=== PATIENT | male | born 1945 | race Caucasian/White ===

== ENCOUNTER 2017-02-16 13:42 | Emergency (ER) | payer MEDICARE, MEDICAID ==
[~2017-02-16] VITALS: Ht 182.9 cm; Wt 68.0 kg
[~2017-02-16 13:42] MED LIST: TAMS-12 PO
[2017-02-16 13:51] VITALS: BP 127/68
== END 2017-02-16 14:52 | disposition left against medical advice (07) ==
LOC: ER 13:44
DX: Z53.21 Procedure and treatment not carried out due to patient leaving prior to being seen by health care provider (principal)
CPT/HCPCS: A4606; Z7502; Z7610

== ENCOUNTER 2021-08-13 12:37 | Emergency (ER) | payer MEDICARE, MEDICAID ==
[~2021-08-13] VITALS: Ht 182.9 cm; Wt 79.4 kg
--- NOTE | 2021-08-13 12:40 | NUR ---
BIBRA 878 FROM HOME PT C/O DIFFICULTY URINATING SINCE LAST NIGHT. PT IS A&OX 4 AND IS STABLE. PT VITALS ARE WITHIN NORMAL LIMITS. PT BREATHING IS REGULAR AND UNLABORED. PT SENT TO BED 4 AND PLACED ON MONITOR.
--- NOTE | 2021-08-13 12:42 | NUR ---
DR FOWLER AT PT BEDSIDE
--- NOTE | 2021-08-13 12:44 | NUR ---
AUGUSTIN CATHETER WAS PLACED
--- NOTE | 2021-08-13 12:48 | NUR ---
LAB AT PT BEDSIDE
--- NOTE | 2021-08-13 12:55 | NUR ---
URINE COLLECTED AND SENT TO LAB
[2021-08-13 13:06] LABS: BASOPHILS % (AUTO) 0.7 % (0.0-2.0); EOSINOPHILS % (AUTO) 0.3 % (0.0-6.0); HEMATOCRIT 38 % (39-51); LYMPHOCYTES # (AUTO) 0.9 K/uL (0.8-4.8); LYMPHOCYTES % (AUTO) 18.5 % (20.0-44.0); MEAN CORPUSCULAR HGB CONC 34 g/dl (31.0-36.0); MEAN CORPUSCULAR VOLUME 102 fL (80-96); MONOCYTES # (AUTO) 0.5 K/uL (0.1-1.30); MONOCYTES % (AUTO) 10.7 % (2.0-12.0); NEUTROPHILS # (AUTO) 3.4 K/uL (1.8-8.9); NEUTROPHILS % (AUTO) 69.8 % (43.0-81.0); PLATELET COUNT (AUTO) 249 K/uL (150-450); WHITE BLOOD COUNT (AUTO) 4.8 K/uL (4.3-11.0)
[2021-08-13 13:21] LABS: CALCIUM, SERUM 8.4 mg/dL (8.5-10.1); POTASSIUM 3.9 mmol/L (3.5-5.1)
[2021-08-13 13:21] LABS: BILIRUBIN,URINE Negative (NEGATIVE); COLOR,URINE YELLOW (YELLOW); LEUKOCYTE ESTERASE ,URINE Negative (NEGATIVE); NITRITE, URINE Negative (NEGATIVE); PH,URINE 7.5 (5.0-8.0); PROTEIN,URINE Negative (NEGATIVE); UGLUCOSE Negative (NEGATIVE); UROBILINOGEN,URINE 0.2 EU/dL (0.2)
[2021-08-13 13:38] LABS: BACTERIA,URINE None seen /HPF (None Seen); RBC,URINE 21-50 /HPF (0-2); WBC,URINE NONE SEEN /HPF (0-3)
--- NOTE | 2021-08-13 14:14 | NUR ---
Patient discharged to home in stable condition. Written and verbal after care instructions given of how to care for urinary catheter. Patient verbalizes understanding of instruction.
[2021-08-13 14:21] VITALS: BP 105/60
== END 2021-08-13 14:14 | disposition home or self-care (01) ==
LOC: ER 12:40
DX: R33.9 Retention of urine, unspecified (principal); E03.9 Hypothyroidism, unspecified; Z60.2 Problems related to living alone
CPT/HCPCS: 36415; 80048-TC; 81001; 85025-TC

== ENCOUNTER 2021-08-15 12:31 | Emergency (ER) | payer MEDICARE, MEDICAID ==
[~2021-08-15] VITALS: Ht 190.5 cm; Wt 63.5 kg
--- NOTE | 2021-08-15 13:15 | NUR ---
PT CAME TO ER FOR AUGUSTIN CATHETER REMOVAL S/P URINARY RETENTION 2 DAYS AGO. DENIES ANY OTHER COMPLAINTS. HX OF BPH. PT HELPED TO BED 12.
--- NOTE | 2021-08-15 13:20 | NUR ---
URETHRAL CATHETER REMOVED. PT TOLERATED WELL. DRAINAGE IS YELLOW, CLEAR, NO ODOR NOTED.
--- NOTE | 2021-08-15 14:28 | NUR ---
Patient discharged to home in stable condition. Written and verbal after care instructions given. Patient verbalizes understanding of instruction.
[2021-08-15 14:32] VITALS: BP 109/72
== END 2021-08-15 14:31 | disposition home or self-care (01) ==
LOC: ER 12:44
DX: Z46.6 Encounter for fitting and adjustment of urinary device (principal); R33.9 Retention of urine, unspecified; E03.9 Hypothyroidism, unspecified; N40.0 Benign prostatic hyperplasia without lower urinary tract symptoms; Z60.2 Problems related to living alone

== ENCOUNTER 2023-11-06 08:03 | Emergency (ER) | payer MEDICARE, OTHER ==
[~2023-11-06] VITALS: Ht 182.9 cm; Wt 65.8 kg
[2023-11-06] MEDS: IV NS 0.9% 1,000 ML BAG IV ONE (09:00)
[2023-11-06 09:25] LABS: BASOPHILS % (AUTO) 0.4 % (0.0-2.0); EOSINOPHILS % (AUTO) 0.1 % (0.0-6.0); HEMATOCRIT 35 % (39-51); HEMOGLOBIN 12.2 g/dL (13.5-17.5); LYMPHOCYTES # (AUTO) 0.8 K/uL (0.8-4.8); LYMPHOCYTES % (AUTO) 12.7 % (20.0-44.0); MEAN CORPUSCULAR HEMOGLOBIN 34 PG (26.0-33.0); MEAN CORPUSCULAR HGB CONC 35 g/dl (31.0-36.0); MEAN CORPUSCULAR VOLUME 97 fL (80-96); MONOCYTES # (AUTO) 0.5 K/uL (0.1-1.30); MONOCYTES % (AUTO) 7.7 % (2.0-12.0); NEUTROPHILS % (AUTO) 79.1 % (43.0-81.0); PLATELET COUNT (AUTO) 371 K/uL (150-450); RED BLOOD CELL COUNT(AUTO) 3.62 MIL/uL (4.5-6.0); RED CELL DISTRIBUTION WIDTH 12.6 % (11.5-15.0); WHITE BLOOD COUNT (AUTO) 6.3 K/uL (4.3-11.0)
[2023-11-06] MEDS: TAMSULOSIN 0.4 MG CAP.SR.24H PO ONE (09:30)
[2023-11-06 09:36] LABS: CALCIUM, SERUM 8.9 mg/dL (8.5-10.1); CREATININE 0.7 mg/dL (0.6-1.3); POTASSIUM 3.9 mmol/L (3.5-5.1)
[2023-11-06 09:40] LABS: ALBUMIN 3.7 g/dL (3.4-5.0); BILIRUBIN,DIRECT 0.2 mg/dL (0.0-0.2); BILIRUBIN,TOTAL 0.7 mg/dL (0.2-1.0)
[2023-11-06] MEDS ORDERED: TAMSULOSIN 0.4 MG CAP.SR.24H ONE (10:33)
[2023-11-06 11:30] LABS: APPEARANCE,URINE CLOUDY (CLEAR); BILIRUBIN,URINE NEGATIVE (NEGATIVE); BLOOD, URINE TRACE-INTA Ery/uL (NEGATIVE); COLOR,URINE YELLOW (YELLOW); KETONES,URINE NEGATIVE (NEGATIVE); LEUKOCYTE ESTERASE ,URINE TRACE (NEGATIVE); NITRITE, URINE NEGATIVE (NEGATIVE); PROTEIN,URINE NEGATIVE (NEGATIVE); UGLUCOSE NEGATIVE (NEGATIVE); UROBILINOGEN,URINE 0.2 EU/dL (0.2)
[2023-11-06 11:33] LABS: ADD URINE CULTURE YES; BACTERIA,URINE Rare /HPF (None Seen); SQUAMOUS EPITHELIAL CELL,UR Few /HPF (None Seen)
[2023-11-06] MEDS ORDERED: CIPR-262 PO (12:13)
[2023-11-06 13:42] VITALS: BP 141/71; TEMP 98; O2SAT 100
== END 2023-11-06 13:42 | disposition home or self-care (01) ==
LOC: ER 08:03
DX: R33.9 Retention of urine, unspecified (principal); R19.7 Diarrhea, unspecified; R10.2 Pelvic and perineal pain; E03.9 Hypothyroidism, unspecified; Z60.2 Problems related to living alone
CPT/HCPCS: 99284; 74176; 96360; 71045; 51702; 85025; 80048; 87086; 83690; 80076; 81001; 36415; J7030

== ENCOUNTER 2023-11-16 14:45 | Emergency (ER) | payer MEDICARE, OTHER ==
[~2023-11-16] VITALS: Ht 182.9 cm; Wt 66.2 kg
[~2023-11-16 14:45] MED LIST changes: +CIPR-262 PO
[2023-11-16] MEDS ORDERED: TAMS-12 PO (17:42)
[2023-11-16] MEDS ORDERED: PHEN-705 PO (17:42)
[2023-11-16 18:05] VITALS: BP 148/66; TEMP 97.9; O2SAT 99
[2023-11-16 18:05] LABS: APPEARANCE,URINE SLIGHTLY CLOUDY (CLEAR); BILIRUBIN,URINE NEGATIVE (NEGATIVE); BLOOD, URINE TRACE-INTA Ery/uL (NEGATIVE); COLOR,URINE YELLOW (YELLOW); KETONES,URINE NEGATIVE (NEGATIVE); LEUKOCYTE ESTERASE ,URINE NEGATIVE (NEGATIVE); NITRITE, URINE NEGATIVE (NEGATIVE); PH,URINE 7.5 (5.0-8.0); PROTEIN,URINE NEGATIVE (NEGATIVE); UGLUCOSE NEGATIVE (NEGATIVE); UROBILINOGEN,URINE 0.2 EU/dL (0.2)
[2023-11-16 19:06] LABS: ADD URINE CULTURE NO; BACTERIA,URINE None seen /HPF (None Seen); SQUAMOUS EPITHELIAL CELL,UR 0-2 /HPF (None Seen); URINE AMORPHOUS PHOSPHATES Moderate /HPF (None Seen); WBC,URINE 0-2 /HPF (0-3)
== END 2023-11-16 18:06 | disposition home or self-care (01) ==
LOC: ER 15:04
DX: R30.0 Dysuria (principal); E03.9 Hypothyroidism, unspecified; Z60.2 Problems related to living alone
CPT/HCPCS: 81001; 87086-TC

== ENCOUNTER 2025-07-22 08:55 | Emergency (ER) | payer MEDICARE, OTHER ==
[~2025-07-22] VITALS: Ht 210.8 cm; Wt 65.8 kg
[~2025-07-22 08:55] MED LIST changes: +PHEN-705 PO
[2025-07-22] MEDS ORDERED: LIDOCAINE 2% JEL UROJET 10 ML MM ONE ×2 (09:02→10:00)
[2025-07-22 10:11] VITALS: BP 140/80; TEMP 98.1; O2SAT 100
[2025-07-22 11:36] LABS: APPEARANCE,URINE CLEAR (CLEAR); BLOOD, URINE 1+ Ery/uL (NEGATIVE); LEUKOCYTE ESTERASE ,URINE NEGATIVE (NEGATIVE); NITRITE, URINE NEGATIVE (NEGATIVE); UGLUCOSE NEGATIVE (NEGATIVE)
[2025-07-22 11:51] LABS: ADD URINE CULTURE NO; SQUAMOUS EPITHELIAL CELL,UR None Seen /HPF (None Seen)
== END 2025-07-22 10:13 | disposition home or self-care (01) ==
LOC: ER 08:57
DX: R33.9 Retention of urine, unspecified (principal); N40.1 Benign prostatic hyperplasia with lower urinary tract symptoms; E03.9 Hypothyroidism, unspecified; Z96.0 Presence of urogenital implants; Z60.2 Problems related to living alone
CPT/HCPCS: 99284; 51702; 81001; J3490